=== PATIENT | female | born 1950 | race Caucasian/White ===

== ENCOUNTER 2016-10-23 05:35 | Day surgery (SDC) | payer OTHER ==
[~2016-10-23] VITALS: Ht 149.9 cm; Wt 77.3 kg
[~2016-10-23 05:35] MED LIST: ASPI81 PO; GLIP10 PO; LIDOCAINE HCL/PF 2% 5 ML SYRINGE IVP ONE; LISI-660 PO; MULT-71 PO; PROPOFOL 1% 20 ML VIAL IVP ONE; SIMV10 PO
[2016-10-23] MEDS ORDERED: SODIUM CHLORIDE 0.9% 1,000 ML IV ONE ×2 (05:49→06:00)
[2016-10-23] MEDS ORDERED: BOTULINUM TOXIN TYPE A 100 UNITS/VIAL MISC ONE (06:15)
[2016-10-23 06:32] LABS: GLUCOSE,POINT OF CARE 127 MG/DL (70-110)
[2016-10-23] MEDS ORDERED: NITR.4 SL (06:45)
== END 2016-10-23 09:00 | disposition home or self-care (01) ==
LOC: SURGERY 05:35
PROVIDERS: ATTEND Specialist
DX: K29.50 Unspecified chronic gastritis without bleeding (principal); K44.9 Diaphragmatic hernia without obstruction or gangrene; K22.4 Dyskinesia of esophagus; K21.9 Gastro-esophageal reflux disease without esophagitis; I10 Essential (primary) hypertension; E11.9 Type 2 diabetes mellitus without complications
CPT/HCPCS: 43236; 82962; 88305; 88312; J0585; J2704; J3490; J7030; 99152

== ENCOUNTER → 2018-02-26 | Outpatient (CLI) | payer MEDICARE, OTHER ==
[~2018-02-26] MED LIST changes: -LIDOCAINE HCL/PF 2% 5 ML SYRINGE IVP ONE; -MULT-71 PO; +MULT1TAB70 PO; +NITR.4 SL; -PROPOFOL 1% 20 ML VIAL IVP ONE; +SIMV-259 PO; -SIMV10 PO
== END | disposition home or self-care (01) ==
LOC: RADPV 08:47
PROVIDERS: ATTEND Internal Medicine Cardiovascular Disease
DX: I70.0 Atherosclerosis of aorta (principal)